=== PATIENT | female | born 1945 | race Caucasian/White ===

== ENCOUNTER 2016-10-28 07:19 | Day surgery (SDC) | payer MEDICARE, OTHER ==
[~2016-10-28 07:19] MED LIST: EPINEPHRINE INJ 1 MG/10 ML DISP.SYRIN ONE; FENTANYL CITRATE INJ/PF 100 MCG/2 ML AMPUL ONE; FLUMAZENIL INJ 0.5 MG/5 ML VIAL IV ONE; GLUCAGON,HUMAN RECOMB 1 MG INJ ONE; GLYCOPYRROLATE INJ 0.4 MG/2 ML VIAL ONE; NALOXONE HCL INJ/PF 0.4 MG/1 ML SDV ONE; ONDANSETRON HCL INJ/PF 4 MG/2 ML SDV ONE; PROMETHAZINE HCL INJ 25 MG/1 ML VIAL ONE
[2016-10-28] MEDS: MIDAZOLAM 2 MG/2 ML INJ ONE ×2 (07:43→07:58)
--- NOTE | 2016-10-28 08:44 | Operative Report ---
Operative Report DATE OF SURGERY: 10/28/16 PREOPERATIVE DIAGNOSIS: 1. History of colon polyps. 2. Status post sigmoid colectomy, colostomy and Stinson's pouch for perforated diverticular disease POSTOPERATIVE DIAGNOSIS: Same with. 1. Solitary polyp of the left colon. 2. Diversion proctitis. 3. Polypoid lesion of the rectum at 10 cm OPERATION: 1. Colonoscopy through colostomy to the cecum. 2. Left colon polypectomy. 3. Proctoscopy with debridement of retained stool. 4. Piecemeal polypectomy of polyp with lesion of the rectum at 10 cm from anal verge SURGEON: KISHORE VILLAGOMEZ ANESTHESIA: Moderate Sedation TISSUE REMOVED OR ALTERED: Polyps of left colon and rectum COMPLICATIONS: None ESTIMATED BLOOD LOSS: scant INTRAOPERATIVE FINDINGS: See below PROCEDURE: Obtaining informed consent the patient was taken from the preoperative holding area to the main endoscopy suite where monitoring devices were attached to the patient. Plan and surgical timeout were conducted The patient was placed in the lithotomy position with the appliance back from colostomy, left-sided, was removed. The ostomy was pink. It was digitalized to admit a pinky finger and and then an index finger. There was no evidence of stenosis. The flexible adult colonoscope was advanced all the way to the cecum. The this was an excellent study on a well-prepped bowel. Transillumination of the anterior abdominal wall and cecal anatomy confirm cecal visualization. The scope was withdrawn on the way out and a small polyp was seen in the left colon which was removed using the cold forceps device. It was labeled left colon polyp. Bleeding was negligible. The scope was withdrawn through the rest of the colon out the ostomy and no other pathology seen. There were no retained diverticuli. Now the patient was then placed in the left lateral decubitus position. Perianal exam revealed a retired anterior thrombosed hemorrhoid. Rectal exam revealed good sphincter tone. The flexible adult colonoscope was advanced through the an0- rectal canal; there was evidence of diversion colitis, mild. The scope was advanced to the termination point of the Stinson's pouch which was approximately 20 cm from the anal verge. There was a moderate amount of stool which required mechanical and water Irrigation debridement. Cystoscopy was clear we able to identify a polyp at approximately 10 cm from anal verge which was approximately 8-9 mm in diameter somewhat frond-like. It was photographed then debrided with the mechanical cold forceps device. The vessel was sent as rectal polyp. No other significant rectal pathology was seen. There were 2 diverticuli identified. The scope was withdrawn to the patient's anus. She tolerated the procedure well. The patient will be set up for colostomy takedown in the future pending the results of the rectal polypectomy catheter report. Surveillance colonoscopy will be indicated, other things being equal, in 3 years.
--- NOTE | 2016-10-28 08:46 | PDOC DISCHARGE SUMMARY ---
Discharge Summary (SDC) - Discharge Final Diagnosis: 1. Colon and rectal polyps. 2. Status post colostomy, colectomy and Stinson's pouch for perforated sigmoid diverticular disease Date of Surgery: 10/28/16 Discharge Date: 10/28/16 Condition: Good Treatment or Instructions: [facility] [address] [address] POST ENDOSCOPY DISCHARGE INSTRUCTIONS 1. Diet: Start clear liquids that a regular diet as tolerated. 2. Resume all preoperative medications. All oral anticoagulants and aspirins can be resumed 24 hours after procedure. 3. If a polypectomy was performed some bleeding per rectum may occur. This should stop within 3 days. If not, please contact the office. 4. If you had a colonoscopy you may experience some bloating and delayed return of normal bowel function for several days, your regular bowel movement pattern should resume within a week. 5. Please contact [facility] at to make an appointment with Dr. Lucero for 1 to 3 weeks following procedure. 6. If you have any questions or concerns regarding your care,treatment plan or follow up, please contact our office. 7. Per clinical guidelines we recommend you undergo a repeat colonoscopy in 3 years. Discharge Diet: As Tolerated Discharge Activity: Activity As Tolerated Home Care Assistance: None Needed Report the Following to Your Physician Immediately: Shortness of Breath, Increase in Pain, Fever over 101 Degrees
[2016-10-28 09:33] VITALS: BP 100/55
== END 2016-10-28 09:35 | disposition home or self-care (01) ==
LOC: END 07:19
PROVIDERS: ATTEND Surgery
PROC: 0DBG8ZX Excision of Left Large Intestine, Via Natural or Artificial Opening Endoscopic, Diagnostic (ICD-10-PCS; principal; 2016-10-28 07:30)
PROC: 0DBP8ZX Excision of Rectum, Via Natural or Artificial Opening Endoscopic, Diagnostic (ICD-10-PCS; 2016-10-28 07:30)
DX: D12.4 Benign neoplasm of descending colon (principal); K62.1 Rectal polyp; K62.89 Other specified diseases of anus and rectum; Z87.19 Personal history of other diseases of the digestive system; Z93.3 Colostomy status; I10 Essential (primary) hypertension; I25.2 Old myocardial infarction; Z95.5 Presence of coronary angioplasty implant and graft; Z70.2 Counseling related to sexual behavior and orientation of third party; Z79.82 Long term (current) use of aspirin; Z79.51 Long term (current) use of inhaled steroids; Z88.6 Allergy status to analgesic agent
CPT/HCPCS: 46606; 44389; 88305 ×2; J2250; J3010; J0171; J1610; J2310; J2405; J2550; J3490

== ENCOUNTER 2016-12-22 05:20 | Inpatient (IN) | payer MEDICARE, OTHER ==
--- NOTE | 2016-12-15 17:18 | EKG REPORT ---
SEVERITY:- BORDERLINE ECG - SINUS RHYTHM CONSIDER RVH OR POSTERIOR INFARCT BORDERLINE T ABNORMALITIES, INFERIOR LEADS NS T CHANGES IN LEADS 3 ANDD aVF : Confirmed by: Kaley Ramos MD 15-Dec-2016 09:10:56
[2016-12-16 08:01] LABS: HEMATOCRIT 44.6 % (36.0-47.0); HEMOGLOBIN 14.6 g/dL (12.0-15.5); HGB HCT DIFFERENCE -0.8; MEAN CORPUSCULAR HEMOGLOBIN 32.2 pg (27.0-33.4); MEAN CORPUSCULAR HGB CONC 32.8 g/dL (32.0-36.0); MEAN CORPUSCULAR VOLUME 98 fl (80-97); RED BLOOD COUNT 4.54 10^6/uL (3.72-5.28); RED CELL DISTRIBUTION WIDTH 13.2 % (11.5-14.0); WHITE BLOOD COUNT 6.3 10^3/uL (4.0-10.5)
[2016-12-17 16:31] LABS: ANION GAP 11 (5-19); BLOOD UREA NITROGEN 16 mg/dL (7-20); CARBON DIOXIDE 32 mmol/L (22-30); CHLORIDE 101 mmol/L (98-107); CREATININE RESULT 0.78 mg/dL (0.52-1.25); GLUCOSE 116 mg/dL (75-110); SODIUM 143.8 mmol/L (137-145)
[~2016-12-22 05:20] MED LIST changes: +AMPICILLIN SODIUM/SULBACTAM NA 3 GM in NORMAL SALINE 100 ML IV PRN; -EPINEPHRINE INJ 1 MG/10 ML DISP.SYRIN ONE; -FENTANYL CITRATE INJ/PF 100 MCG/2 ML AMPUL ONE; -FLUMAZENIL INJ 0.5 MG/5 ML VIAL IV ONE; -GLUCAGON,HUMAN RECOMB 1 MG INJ ONE; -GLYCOPYRROLATE INJ 0.4 MG/2 ML VIAL ONE; -NALOXONE HCL INJ/PF 0.4 MG/1 ML SDV ONE; -ONDANSETRON HCL INJ/PF 4 MG/2 ML SDV ONE; -PROMETHAZINE HCL INJ 25 MG/1 ML VIAL ONE; +RINGERS SOLUTION,LACTATED 1,000 ML IV PRN
[2016-12-22 06:57] LABS: PROTHROMBIN TIME 13.9 SEC (11.4-15.4)
[2016-12-22 06:58] LABS: PARTIAL THROMBOPLASTIN TIME 40.1 SEC (23.5-35.8)
[2016-12-22] MEDS ORDERED: FENTANYL CITRATE INJ/PF 250 MCG/5 ML AMPULE ONE (07:04)
[2016-12-22] MEDS ORDERED: MIDAZOLAM 2 MG/2 ML INJ ONE (07:05)
[2016-12-22] MEDS ORDERED: HYDROMORPHONE HCL INJ/PF 2 MG/ML AMPULE ONE (07:05)
[2016-12-22] MEDS ORDERED: EPHEDRINE SULFATE INJ 50 MG/1 ML AMPULE ONE (07:05)
[2016-12-22] MEDS ORDERED: ACETAMINOPHEN 100 ML IV ONE (07:06)
[2016-12-22] MEDS ORDERED: PROPOFOL INJ 200 MG/20 ML VIAL IV ONE (07:06)
[2016-12-22] MEDS ORDERED: BUPIVACAINE INJ/PF LIPOSOME/PF 266 MG/20 ML SDV ONE (08:07)
[2016-12-22] MEDS ORDERED: MEPERIDINE HCL/PF INJ 25 MG/1 ML DISP.SYRIN IV PRN ×2 (08:25→13:17)
[2016-12-22] MEDS ORDERED: PROMETHAZINE HCL INJ 25 MG/1 ML VIAL IV PRN ×4 (08:25→13:17)
[2016-12-22] MEDS ORDERED: FENTANYL CITRATE INJ/PF 100 MCG/2 ML AMPUL IV PRN ×6 (08:25→13:17)
[2016-12-22] MEDS ORDERED: DIPHENHYDRAMINE HCL 50 MG/ML VIAL IV PRN ×2 (08:25→13:17)
[2016-12-22] MEDS ORDERED: ALBUTEROL SULFATE 0.083% NEB 2.5 MG/3 ML AMPUL NEB ONE (09:44)
[2016-12-22] MEDS ORDERED: GLUCAGON,HUMAN RECOMB 1 MG INJ ONE (09:56)
[2016-12-22] MEDS ORDERED: FENTANYL CITRATE INJ/PF 100 MCG/2 ML AMPUL ONE ×2 (11:13→12:56)
[2016-12-22] MEDS ORDERED: RINGERS SOLUTION,LACTATED 1,000 ML IV PRN ×2 (12:02→12:29)
[2016-12-22] MEDS ORDERED: ONDANSETRON HCL INJ/PF 4 MG/2 ML SDV IV PRN (12:02)
[2016-12-22] MEDS ORDERED: MORPHINE SULFATE 10 MG/ML INJ IV PRN (12:02)
[2016-12-22] MEDS ORDERED: GLUCAGON,HUMAN RECOMB 1 MG INJ SUBCUT PRN (12:07)
[2016-12-22] MEDS ORDERED: DEXTROSE 50%-WATER 25 GM/50 ML DISP.SYRIN IV PRN ×2 (12:07)
[2016-12-22] MEDS ORDERED: DEXTROSE 40% GEL 15 GM TUBE PO PRN ×2 (12:07)
[2016-12-22] MEDS ORDERED: NALOXONE HCL INJ/PF 0.4 MG/1 ML SDV ONE (12:11)
--- NOTE | 2016-12-22 13:23 | OPERATIVE REPORT E ---
Operative Report NAME: BITA THOMPSON : 1945 AGE: 71Y DATE OF SURGERY: 12/22/2016 ROOM: OR PREOPERATIVE DIAGNOSIS: STATUS POST SIGMOID COLECTOMY WITH DESCENDING COLOSTOMY AND PAM PROCEDURE FOR COMPLICATED DIVERTICULITIS, HINCHEY CLASSIFICATION 4. POSTOPERATIVE DIAGNOSIS: STATUS POST SIGMOID COLECTOMY WITH DESCENDING COLOSTOMY AND PAM PROCEDURE FOR COMPLICATED DIVERTICULITIS, HINCHEY CLASSIFICATION 4, WITH INTRAABDOMINAL ADHESIONS, AND MID-RECTAL STRICTURE. PROCEDURES: 1. Exploratory laparotomy. 2. Open lysis of adhesions. 3. Descending colostomy takedown. 4. Serosal repair of partial thickness rents in small bowel. 5. Colorectostomy with 25 mm EEA stapler. SURGEON: KISHORE LUCERO M.D. HONING MACHINE OPERATOR: OLGA REDMOND PA-C ANESTHESIA: General. ESTIMATED BLOOD LOSS: 250 mL. CRYSTALLOID INFUSED: Approximately 3 L. BLOOD TRANSFUSED: None. DRAINS: One large Justin, right pelvis. SUMMARY OF PROCEDURE: The patient was seen in the preop holding area, then taken to the main operating room where general anesthesia was induced. The patient was placed in the stirrup position, abdomen exposed, Kohli catheter inserted. We removed he ostomy appliance and closed the mucosae with a running 2-[address] Lucero performed rectal examination. We removed several desiccated fecal balls. The anorectal canal easily admitted 2 adult fingers. The abdomen and perineal areas were prepped and draped in a sterile fashion. Surgical plan and surgical timeout were conducted. We started the operation by taking down the colostomy. The ostomy was excised at the skin level with a #10 blade. The level of dissection was taken down close to the bowel surface all the way down to the fascia using electrocautery and blunt dissection. Once this was achieved, we then opened up the midline incision through the previous scar. We got into the peritoneal cavity sharply, then began taking down extensive adhesions between the anterior abdominal wall and several loops of small bowel. Some of these adhesions were very tenacious and there were 2 to 3 small serosal rents made in the bowel wall. These were not full thickness rents. Once all of the adhesiolysis was accomplished, Bookwalter retractor was established. We then took down the rest of the descending colon from the left abdominal wall using a combination of sharp and electrocautery dissection. Of note, the gastrocolic omentum was adhesed to the anterior abdominal wall on the patient's left side. Initially, we started taking down part of the peritoneal layer, but this was then recognized and from the dense adhesions in the left upper quadrant. Of note, the patient had previously undergone splenic flexure takedown. We now completed our lysis of adhesions which took another 30 minutes. This was primarily to mobilize the small bowel out of the left pericolic gutter, and the descending colon from the transverse colon. Use of open LigaSure device facilitated the dissection. The gastrocolic omentum was also divided so that the transverse colon and descending colon were now free and floppy. All adhesions were taken down all the way to the Ligament of Treitz. We now turned our attention to the pelvis. Patient had previous oophorectomy by clinical exam. There were dense adhesions between the uterus and the pelvis, and these adhesions were then taken down sharply. We stayed in midline and eventually got down to the rectal stump which was identified using two 2-0 Prolene sutures. Dissection was rather tedious here, again because of an exorbitant amount of adhesions. Once we were able to get the rectal stump up into the field of view, I felt that we could bring the proximal descending colon down without tension and perform the anastomosis. We turned our attention now to the descending colon. Of note, prior to bringing the colonostomy through the anterior abdominal wall in a retrograde fashion, I stapled off the hand-sewn ostomy opening with a single firing of the DEEPIKA-55 stapler. We now examined the distal end of the descending colon. We proceeded to perform the stapled suture application and so this was brought onto the field. The DEEPIKA-55 staple line was affixed with Allis clamps and we fired the purse-string stapler into position. Excess colon was excised with Perrin scissors and we inspected the lumen of the descending colon. Of note, this was a small caliber colon throughout the length of the transverse and descending colon. We gave the patient 1 mg of Glucagon; there was no soilage here and we were only able to dilate up with great resistance of the colon to accept a 25-mm obturator. Since we had significant length, we felt we could take a small section of the descending colon, and revise the pursestring suture, and so this was affected by simply moving more proximally on the descending colon, and performing a second firing of the purse-string stapler. Once we opened up the colon, we were able to insert a 25-mm obturator with slightly less resistance. Unfortunately, I did not feel we would be able to dilate this colon up any further. Dr. Lucero now broke scrub and came down from below for positioning of the EEA stapler. I first performed rigid sigmoidoscopy. Several desiccated small stool balls were removed. I advanced the rigid sigmoidoscope up to approximately 15 cm from the anal verge and there was a very narrow concentric ring-like narrowing of to the lumen. I broke out of the perineal position, and scrubbed back into the operative field and tried to lyse some additional adhesions, mobilizing the rectal stump a few more centimeters in an attempt to free this area extra-luminally. I went back down below and again tried to reinsert the rigid sigmoidoscope past this narrowed area. I also used the 25-mm obturator. Unfortunately, I was not able to get past this area, and I believed that this would cause the patient problems in the future. Therefore, I scrubbed back into the operative field and proceeded to mobilize approximately 8 cm of the upper rectum so that we could get down below the stenotic ring-like area of the rectum at 15 cm from the anal verge. I used a combination of electrocautery, blunt dissection, and LigaSure device, working in a circumferential fashion staying close to the upper rectum. Of note the peritoneal reflection had been taken down earlier. There were dense adhesions between the peritoneal lining and the anterior surface of the rectum. Of note, we did take the adhesionws down sharply between the pelvic reflection and the anterior rectal wall. Of note, prior to this entire dissection, when we first identified the rectal stump, we did encounter dense adhesions between the posterior surface of the uterus which in fact had 2 or 3 small fibroids in the anterior upper rectum. I was now able to elevate the more proximal rectal stump with Allis clamps and we were now able to bring onto the field a curvilinear contour Ethicon stapler. This was fit into position. We checked that we were about to staple across the proximal rectal stump only. The stapler was fired and released. This thereby allowed us to excise the stenotic area at 15 cm. We now had the proximal descending colon secured with the anvil anteposition. We cleaned some of the redundant fatty tissue around the post of the anvil. The descending colon came down nicely without tension into the true pelvis. I came down below again with a rigid sigmoidoscope and inspected the Pam pouch (that is the now revised rectum which had been transected with a contour stapler). It was approximately 13 cm in length. I now brought the sigmoidoscope of the anorectal canal and inserted the stapler component of the EEA device. This was advanced without difficulty right up to the staple line. I then brought the pin out just anterior to the contour staple line. We locked the proximal colon (that is with the Anvil anteposition) and torqued the tension down to the appropriate specifications. We waited approximately 30 seconds, then deployed the stapler. The stapler and anvil were removed intact. I inspected for intact donuts. The distal donut was clearly intact and the proximal donut ripped in one area during its extirpation from the stapler; so, whether it was originally intact or not is debatable. We instilled a liter or saline into the pelvis, and clamped the descending colon proximal to the anastomosis. I performed rigid sigmoidoscopy. The anastomosis was wide open, healthy without tension, and insufflation resulted in distention of the proximal descending colon without any leakage of bubbles. The anorectal canal was evacuated of air, sigmoidoscope removed, and pelvis evacuated of fluid. We closed now the small serosal rents in the small bowel as previously described with an interrupted 3-0 Vicryl suture. A large Justin drain was placed into the true pelvis, trimmed appropriately, and secured to the skin with 2-0 Prolene suture. We checked for position of the nasogastric tube, replaced by the roofer helper vinyl coating, and was felt to be in good position. Sponge and needle counts are correct. We now closed the original ostomy with multiple [id number] 0-PDS sutures. The midline abdominal wall was closed with two double-stranded #1 PDS sutures and skin approximated under both incisions with livan. Skin was anesthetized with EXPAREL dilute. Patient tolerated procedure well, extubated, and taken to recovery in stable condition. DICTATING PHYSICIAN: KISHORE LUCERO M.D. [id number] PHY#: [id number] ID: [id number] JOB#: [id number] ACCT: [id number] cc:KISHORE LUCERO M.D. > [facility]
[2016-12-22] MEDS ORDERED: NEOSTIGMINE METHYLSULFATE 10 MG/10 ML VIAL ONE (13:25)
[2016-12-22] MEDS ORDERED: LIDOCAINE 2% INJ-PF (20 MG/ML) 10 ML AMPUL ONE (13:25)
[2016-12-22] MEDS ORDERED: SUCCINYLCHOLINE CHLORIDE INJ 200 MG/10 ML VIAL ONE (13:25)
[2016-12-22] MEDS ORDERED: ROCURONIUM BROMIDE INJ 50 MG/5 ML VIAL IV ONE (13:25)
[2016-12-22] MEDS ORDERED: DEXAMETHASONE SOD PHOSPHATE INJ 4 MG/1 ML VIAL ONE (13:25)
[2016-12-22] MEDS ORDERED: GLYCOPYRROLATE INJ 0.4 MG/2 ML VIAL ONE (13:25)
[2016-12-22] MEDS ORDERED: ONDANSETRON HCL INJ/PF 4 MG/2 ML SDV ONE (13:25)
[2016-12-22 14:10] LABS: POTASSIUM 4.1 mmol/L (3.6-5.0); SODIUM 138.4 mmol/L (137-145)
--- NOTE | 2016-12-22 14:15 | PDOC CONSULTATION ---
Consultation Consult Date: 12/22/16 Attending physician:: KISHORE VILLAGOMEZ Consult reason:: PVCs intraoperatively History of Present Illness Admission Date/PCP: 12/22/16 05:20 TRENA SCOTT NP Patient complains of: Post operative abdominal pain History of Present Illness: BITA THOMPSON is a 71 year old female has a history of perforated diverticulitis in May 2016 who underwent repair and a colostomy takedown. The patient intraoperatively was noted to have frequent PVCs and hospitalist service was asked to evaluate. Patient was seen in the PACU and she denied any shortness of breath or chest pain. She has had several PVCs however they were asymptomatic. The patient has a history of coronary artery disease but denies any cardiac arrhythmias. The patient preoperatively denied having any complaints of shortness of breath or dyspnea on exertion. She is a former smoker but has not smoked for over 2 years now by her report. Past Medical History Cardiac Medical History: Reports: Coronary Artery Disease, Myocardial Infarction - x1; had 3 stents placed, Hyperlipidema, Hypertension Denies: Atrial Fibrillation, Congestive Heart Failure, Peripheral Vascular Disease, Pulmonary Embolism, Heart Murmur Pulmonary Medical History: Reports: Chronic Obstructive Pulmonary Disease (COPD) Denies: Asthma, Bronchitis, Pneumonia, Respiratory Failure, Sleep Apnea, Tuberculosis Neurological Medical History: Reports: None Endocrine Medical History: Reports: None Renal/ Medical History: Reports: None Malignancy Medical History: Reports: None GI Medical History: Reports: Diverticulitis Psychiatric Medical History: Reports: None Traumatic Medical History: Reports: None Hematology: Reports: None Infectious Medical History: Denies: HIV Past Surgical History Past Surgical History: Reports: Cardiac Catheterization, Colostomy, Coronary Artery Bypass Graft, Coronary Stent - X3, Orthopedic Surgery - left ankle, Tonsillectomy, Tubal Ligation Denies: Amputation, Appendectomy, Section, Cholecystectomy, Gastric Bypass Surgery, Herniorrhaphy, Hysterectomy, Mastectomy, Pacemaker Social History Information Source: Patient Smoking Status: Former Smoker Frequency of Alcohol Use: None Hx Recreational Drug Use: No Drugs: None Hx Prescription Drug Abuse: No - Advance Directive Resuscitation Status: Full Code Family History Family History: CAD - Fathered from a massive [place] at age 59, a paternal uncle of an IL at age 59, mother at age 57 of cancer and emphysema., Hypertension, Malignancy Family History: Father at age 59 from coronary artery disease. Mother at age 57 from breast and lung cancer. She also had COPD Parental Family History Reviewed: Yes Children Family History Reviewed: No Sibling(s) Family History Reviewed.: No Medication/Allergy Home Medications: Ascorbic Acid [Vitamin C 500 mg Tablet] 500 mg PO DAILY 05/29/16 Aspirin [Ecotrin] 81 mg PO DAILY 05/29/16 Atorvastatin Calcium [Lipitor 40 mg Tablet] 40 mg PO QHS 05/29/16 Calcium Carbonate [Calcium] 1,200 mg PO BID 05/29/16 Clopidogrel Bisulfate [Plavix 75 mg Tablet] 75 mg PO DAILY 05/29/16 Metoprolol Succinate [Toprol Xl 50 mg Tab.sr] 50 mg PO DAILY 10/25/16 Allergies/Adverse Reactions: ibuprofen Allergy (Verified 10/28/16 07:22) hands itch morphine Adverse Reaction (Verified 11/26/16 11:21) VOMITING Review of Systems Constitutional: ABSENT: chills, fever(s), headache(s), weight gain, weight loss Eyes: ABSENT: visual disturbances Ears: ABSENT: hearing changes Cardiovascular: ABSENT: chest pain, dyspnea on exertion, edema, orthropnea, palpitations Respiratory: ABSENT: cough, hemoptysis Gastrointestinal: PRESENT: abdominal pain - Postoperative pain. Genitourinary: PRESENT: other - Currently has a Kohli catheter in place. ABSENT : dysuria, hematuria Musculoskeletal: ABSENT: joint swelling Integumentary: ABSENT: rash, wounds Neurological: ABSENT: abnormal gait, abnormal speech, confusion, dizziness, focal weakness, syncope Psychiatric: ABSENT: anxiety, depression Endocrine: ABSENT: cold intolerance, heat intolerance, polydipsia, polyuria Hematologic/Lymphatic: ABSENT: easy bleeding, easy bruising Physical Exam Vital Signs: Temp Pulse Resp BP Pulse Ox 98.3 F 77 16 124/78 99 12/22/16 06:07 12/22/16 06:07 12/22/16 06:07 12/22/16 06:07 12/22/16 06:07 Intake & Output 12/21/16 12/22/16 12/23/16 06:59 06:59 06:59 Intake Total 3200 Output Total 3000 Balance 200 General appearance: PRESENT: no acute distress Head exam: PRESENT: atraumatic, normocephalic Eye exam: PRESENT: conjunctiva pink. ABSENT: scleral icterus Ear exam: PRESENT: normal external ear exam Mouth exam: PRESENT: moist, tongue midline Neck exam: ABSENT: carotid bruit, JVD, lymphadenopathy, thyromegaly Respiratory exam: PRESENT: clear to auscultation wero. ABSENT: rales, rhonchi, wheezes Cardiovascular exam: PRESENT: RRR. ABSENT: diastolic murmur, rubs, systolic murmur Vascular exam: PRESENT: normal capillary refill GI/Abdominal exam: PRESENT: other - Abdominal binder with a drain in place Rectal exam: PRESENT: deferred Extremities exam: ABSENT: calf tenderness, clubbing, pedal edema Neurological exam: PRESENT: alert, awake, oriented to person, oriented to place , oriented to time, oriented to situation, CN II-XII grossly intact. ABSENT: motor sensory deficit Skin exam: PRESENT: dry, intact, warm, other - Abdominal binder in place over the abdomen which was not examined. ABSENT: cyanosis, rash Results Laboratory Results: 12/15/16 08:50 12/22/16 06:30 Potassium 4.8 Assessment & Plan - Diagnosis (1) Coronary artery disease Qualifiers: Coronary Disease-Associated Artery/Lesion type: [place] artery [place] vs. transplanted heart: [place] heart Associated angina: without angina Qualified Code(s): I25.10 - Atherosclerotic heart disease of [place] coronary artery without angina pectoris Is this a current diagnosis for this admission?: YesPlan: Patient was noted to have intraoperative PVCs. The patient however has had no chest pain or shortness of breath. She does have a history of coronary artery disease. We will monitor on telemetry. Patient already has had electrolytes drawn. She normally takes a beta-fred Toprol as an outpatient. If she has frequent PVCs we could give IV Lopressor. (2) COPD (chronic obstructive pulmonary disease) Qualifiers: COPD type: unspecified COPD Qualified Code(s): J44.9 - Chronic obstructive pulmonary disease, unspecified Is this a current diagnosis for this admission?: YesPlan: Patient has no wheezing on exam. (3) Depression Is this a current diagnosis for this admission?: Yes (4) Diverticulosis Qualifiers: Diverticulosis site: unspecified location Diverticulosis bleeding: diverticulosis without bleeding Qualified Code(s): K57.90 - Diverticulosis of intestine, part unspecified, without perforation or abscess without bleeding Is this a current diagnosis for this admission?: YesPlan: Patient is status post colostomy takedown from a perforated diverticulitis in May 2016 (5) Hyperlipidemia Qualifiers: Hyperlipidemia type: unspecified Qualified Code(s): E78.5 - Hyperlipidemia, unspecified Is this a current diagnosis for this admission?: Yes - Time Time Spent: 50 to 70 Minutes - Inpatient Certification Medical Necessity: Need Close Monitoring Due to Risk of Patient Decompensation
[2016-12-22] MEDS: ACETAMINOPHEN 100 ML IV SCH ×2 (14:56→20:05)
[2016-12-22] MEDS: KETOROLAC TROMETHAMINE INJ/PF 30 MG/1 ML SDV IV PRN (20:06)
--- NOTE | 2016-12-22 20:06 | EKG REPORT ---
SEVERITY:- ABNORMAL ECG - SINUS RHYTHM NONSPECIFIC INTRAVENTRICULAR CONDUCTION DELAY NONSPECIFIC ST-T CHANGES- INFERIOR LEADS : Confirmed by: Juan C Glover MD 22-Dec-2016 20:05:21
[2016-12-22] MEDS: FAMOTIDINE INJ/PF 20 MG/2 ML SDV IV SCH (21:58)
[2016-12-23] MEDS: ACETAMINOPHEN 100 ML IV SCH ×4 (02:31→21:44)
[2016-12-23] MEDS: KETOROLAC TROMETHAMINE INJ/PF 30 MG/1 ML SDV IV PRN ×4 (03:07→22:29)
--- NOTE | 2016-12-23 07:38 | PDOC PROGRESS REPORT ---
Subjective Progress Note for:: 12/23/16 Subjective:: Patient has no complaints for some abdominal soreness. She did not get up last night. She had transient episodes of tachycardia which resolved. Physical Exam Vital Signs: Temp Pulse Resp BP Pulse Ox 98.1 F 88 20 93/42 L 97 12/23/16 04:00 12/23/16 07:00 12/23/16 04:00 12/23/16 04:00 12/23/16 04:00 Intake & Output 12/22/16 12/23/16 12/24/16 06:59 06:59 06:59 Intake Total 8502 Output Total 3940 Balance 4562 General appearance: PRESENT: no acute distress Eye exam: PRESENT: EOMI Respiratory exam: PRESENT: clear to auscultation wero GI/Abdominal exam: PRESENT: other - Binder on abdomen talked snugly. No overt tenderness. And with serosanguineous output. Results Laboratory Results: 12/15/16 08:50 12/22/16 13:39 12/22/16 13:39 Sodium 138.4 Potassium 4.1 Chloride 104 Carbon Dioxide 23 Anion Gap 11 Assessment & Plan - Diagnosis (1) S/P colostomy takedown Is this a current diagnosis for this admission?: YesPlan: 1. Postoperative day 1, doing well, no complications thus far. Transient tachycardia likely related to pain 2. Today will be to discontinue Kohli catheter, discontinue nasogastric tube, get patient out of bed and walking. 3. May have a ileus due to moderate extensive lysis of adhesions.
[2016-12-23] MEDS: FAMOTIDINE INJ/PF 20 MG/2 ML SDV IV SCH ×2 (09:20→21:43)
[2016-12-23] MEDS: CLOPIDOGREL BISULFATE 75 MG TABLET PO SCH (09:21)
[2016-12-23] MEDS: ASPIRIN 81 MG TABLET, ENT COATED PO SCH (09:21)
[2016-12-23] MEDS: ASCORBIC ACID 500 MG TABLET PO SCH (09:21)
[2016-12-23] MEDS: METOPROLOL SUCCINATE 50 MG TAB.SR.24H PO SCH (09:22)
[2016-12-23] MEDS ORDERED: (PENDING PHARMACY ID) (Calcium Carbonate [Calcium] 1,200 MG) PO SCH (10:00)
[2016-12-23] MEDS ORDERED: BUTALB/ACETAMINOPHEN/CAFFEINE 1 TAB EACH PO PRN (12:00)
--- NOTE | 2016-12-23 12:04 | PDOC PROGRESS REPORT ---
Subjective Progress Note for:: 12/23/16 Subjective:: Patient states she wants her NG tube out. Physical Exam Vital Signs: Temp Pulse Resp BP Pulse Ox 97.7 F 85 18 88/38 L 94 12/23/16 11:14 12/23/16 11:14 12/23/16 11:14 12/23/16 11:14 12/23/16 11:14 Intake & Output 12/22/16 12/23/16 12/24/16 06:59 06:59 06:59 Intake Total 8502 Output Total 3940 Balance 4562 General appearance: PRESENT: no acute distress Eye exam: PRESENT: conjunctiva pink. ABSENT: scleral icterus Mouth exam: PRESENT: moist, tongue midline Neck exam: ABSENT: JVD Respiratory exam: PRESENT: clear to auscultation wero. ABSENT: rales, rhonchi, wheezes Cardiovascular exam: PRESENT: RRR. ABSENT: diastolic murmur, rubs, systolic murmur GI/Abdominal exam: PRESENT: other - Binder is in place Extremities exam: ABSENT: calf tenderness, clubbing, pedal edema Neurological exam: PRESENT: alert, awake, oriented to person, oriented to place , oriented to time, oriented to situation, CN II-XII grossly intact. ABSENT: motor sensory deficit Psychiatric exam: PRESENT: appropriate affect Skin exam: PRESENT: dry, intact, warm. ABSENT: cyanosis, rash Results Laboratory Results: 12/15/16 08:50 12/22/16 13:39 12/22/16 13:39 Sodium 138.4 Potassium 4.1 Chloride 104 Carbon Dioxide 23 Anion Gap 11 Assessment & Plan - Diagnosis (1) Coronary artery disease Qualifiers: Coronary Disease-Associated Artery/Lesion type: [place] artery [place] vs. transplanted heart: [place] heart Associated angina: without angina Qualified Code(s): I25.10 - Atherosclerotic heart disease of [place] coronary artery without angina pectoris Is this a current diagnosis for this admission?: YesPlan: Patient was noted to have intraoperative PVCs. SHe has had no significant cardiac arrhythmias since being admitted. Will restart her beta-blockers as her blood pressure allows (2) COPD (chronic obstructive pulmonary disease) Qualifiers: COPD type: unspecified COPD Qualified Code(s): J44.9 - Chronic obstructive pulmonary disease, unspecified Is this a current diagnosis for this admission?: YesPlan: Patient has no wheezing on exam. (3) Depression Is this a current diagnosis for this admission?: Yes (4) Diverticulosis Qualifiers: Diverticulosis site: unspecified location Diverticulosis bleeding: diverticulosis without bleeding Qualified Code(s): K57.90 - Diverticulosis of intestine, part unspecified, without perforation or abscess without bleeding Is this a current diagnosis for this admission?: YesPlan: Patient is status post colostomy takedown from a perforated diverticulitis in May 2016 (5) Hyperlipidemia Qualifiers: Hyperlipidemia type: unspecified Qualified Code(s): E78.5 - Hyperlipidemia, unspecified Is this a current diagnosis for this admission?: Yes - Time Time Spent with patient: 25-34 minutes - Inpatient Certification Medical Necessity: Need Close Monitoring Due to Risk of Patient Decompensation
[2016-12-23] MEDS ORDERED: ONDANSETRON HCL INJ/PF 4 MG/2 ML SDV IV PRN (12:12)
[2016-12-23] MEDS: CALCIUM CARBONATE 500 MG TABLET PO SCH (16:27)
[2016-12-23] MEDS: ATORVASTATIN CALCIUM 40 MG TABLET PO SCH (21:44)
[2016-12-24] MEDS: ACETAMINOPHEN 100 ML IV SCH ×2 (02:34→13:30)
[2016-12-24 03:47] LABS: ABSOLUTE EOSINOPHILS # (AUTO) 0.1 10^3/uL (0.0-0.6); ABSOLUTE LYMPHOCYTES (AUTO) 1.2 10^3/uL (0.5-4.7); ABSOLUTE MONOCYTES (AUTO) 0.6 10^3/uL (0.1-1.4); ABSOLUTE NEUT (AUTO) 6.1 10^3/uL (1.7-8.2); BASOPHILS % (AUTO) 0.2 % (0-2); EOSINOPHILS % (AUTO) 0.8 % (0-6); HEMATOCRIT 29.2 % (36.0-47.0); HGB HCT DIFFERENCE 0.8; LYMPHOCYTES % (AUTO) 15.5 % (13-45); MEAN CORPUSCULAR HEMOGLOBIN 32.8 pg (27.0-33.4); MEAN CORPUSCULAR HGB CONC 34.3 g/dL (32.0-36.0); MEAN CORPUSCULAR VOLUME 96 fl (80-97); MONOCYTES % (AUTO) 7.4 % (3-13); RED BLOOD COUNT 3.05 10^6/uL (3.72-5.28); SEGMENTED NEUTROPHILS % (AUTO) 76.1 % (42-78)
[2016-12-24 04:02] LABS: ANION GAP 5 (5-19); BLOOD UREA NITROGEN 21 mg/dL (7-20); CALCIUM 8.5 mg/dL (8.4-10.2); CARBON DIOXIDE 28 mmol/L (22-30); CHLORIDE 105 mmol/L (98-107); CREATININE RESULT 0.84 mg/dL (0.52-1.25); GLUCOSE 80 mg/dL (75-110); MAGNESIUM 1.7 mg/dL (1.6-2.3); PHOSPHORUS 2.7 mg/dL (2.5-4.5); POTASSIUM 4.4 mmol/L (3.6-5.0); SODIUM 138.2 mmol/L (137-145)
[2016-12-24] MEDS ORDERED: POTASSIUM PHOS,M-BASIC-D-BASIC 15 MMOL in NORMAL SALINE 250 ML IV ONE (05:30)
[2016-12-24] MEDS: CLOPIDOGREL BISULFATE 75 MG TABLET PO SCH (09:32)
[2016-12-24] MEDS: CALCIUM CARBONATE 500 MG TABLET PO SCH ×2 (09:32→18:52)
[2016-12-24] MEDS: METOPROLOL SUCCINATE 50 MG TAB.SR.24H PO SCH (09:32)
[2016-12-24] MEDS: FAMOTIDINE INJ/PF 20 MG/2 ML SDV IV SCH ×2 (09:33→21:04)
[2016-12-24] MEDS: ASCORBIC ACID 500 MG TABLET PO SCH (09:33)
[2016-12-24] MEDS: ASPIRIN 81 MG TABLET, ENT COATED PO SCH (09:33)
--- NOTE | 2016-12-24 10:49 | PDOC PROGRESS REPORT ---
Subjective Progress Note for:: 12/24/16 Subjective:: Patient is anxious to go home and eat. She denies having any flatus however Physical Exam Vital Signs: Temp Pulse Resp BP Pulse Ox 98.1 F 72 20 102/67 93 12/24/16 07:43 12/24/16 07:43 12/24/16 07:43 12/24/16 07:43 12/24/16 07:43 Intake & Output 12/23/16 12/24/16 12/25/16 06:59 06:59 06:59 Intake Total 8502 2590 Output Total 3940 1675 Balance 4562 915 Weight 69.6 kg General appearance: PRESENT: no acute distress Eye exam: PRESENT: conjunctiva pink. ABSENT: scleral icterus Mouth exam: PRESENT: moist, tongue midline Neck exam: ABSENT: JVD Respiratory exam: PRESENT: clear to auscultation wero. ABSENT: rales, rhonchi, wheezes Cardiovascular exam: PRESENT: RRR. ABSENT: diastolic murmur, rubs, systolic murmur GI/Abdominal exam: PRESENT: other - Abdominal binder in place. Extremities exam: ABSENT: calf tenderness, clubbing, pedal edema Neurological exam: PRESENT: alert, awake, oriented to person, oriented to place , oriented to time, oriented to situation, CN II-XII grossly intact. ABSENT: motor sensory deficit Psychiatric exam: PRESENT: appropriate affect Skin exam: PRESENT: dry, intact, warm. ABSENT: cyanosis, rash Results Laboratory Results: 12/24/16 03:39 12/24/16 03:39 12/24/16 12/24/16 03:39 03:39 WBC 8.0 RBC 3.05 L Hgb 10.0 L Hct 29.2 L MCV 96 MCH 32.8 MCHC 34.3 RDW 13.0 Plt Count 137 L Seg Neutrophils % 76.1 Lymphocytes % 15.5 Monocytes % 7.4 Eosinophils % 0.8 Basophils % 0.2 Absolute Neutrophils 6.1 Absolute Lymphocytes 1.2 Absolute Monocytes 0.6 Absolute Eosinophils 0.1 Absolute Basophils 0.0 Sodium 138.2 Potassium 4.4 Chloride 105 Carbon Dioxide 28 Anion Gap 5 BUN 21 H Creatinine 0.84 Est GFR ( Amer) > 60 Est GFR (Non-Af Amer) > 60 Glucose 80 Calcium 8.5 Phosphorus 2.7 Magnesium 1.7 Assessment & Plan - Diagnosis (1) Coronary artery disease Qualifiers: Coronary Disease-Associated Artery/Lesion type: [place] artery [place] vs. transplanted heart: [place] heart Associated angina: without angina Qualified Code(s): I25.10 - Atherosclerotic heart disease of [place] coronary artery without angina pectoris Is this a current diagnosis for this admission?: YesPlan: Patient was noted to have intraoperative PVCs. SHe has had no significant cardiac arrhythmias since being admitted. Will restart her beta-blockers as her blood pressure allows. The patient did not get her beta-fred yesterday because of some relative hypotension. (2) COPD (chronic obstructive pulmonary disease) Qualifiers: COPD type: unspecified COPD Qualified Code(s): J44.9 - Chronic obstructive pulmonary disease, unspecified Is this a current diagnosis for this admission?: YesPlan: Patient has no wheezing on exam. (3) Depression Is this a current diagnosis for this admission?: Yes (4) Diverticulosis Qualifiers: Diverticulosis site: unspecified location Diverticulosis bleeding: diverticulosis without bleeding Qualified Code(s): K57.90 - Diverticulosis of intestine, part unspecified, without perforation or abscess without bleeding Is this a current diagnosis for this admission?: YesPlan: Patient is status post colostomy takedown from a perforated diverticulitis in May 2016 (5) Hyperlipidemia Qualifiers: Hyperlipidemia type: unspecified Qualified Code(s): E78.5 - Hyperlipidemia, unspecified Is this a current diagnosis for this admission?: Yes - Time Time Spent with patient: 25-34 minutes - Inpatient Certification Medical Necessity: Need Close Monitoring Due to Risk of Patient Decompensation
--- NOTE | 2016-12-24 14:42 | PDOC PROGRESS REPORT ---
Subjective Progress Note for:: 12/24/16 Subjective:: Patient is postoperative day 2 status post exploratory laparotomy, open takedown of colostomy and colorectal anastomosis. She is tolerating clear liquids, and had flatus. She is voiding without difficulty. Her p.o. preoperative medications have been resumed. Physical Exam Vital Signs: Temp Pulse Resp BP Pulse Ox 97.6 F 114 H 18 127/88 H 93 12/24/16 12:00 12/24/16 12:00 12/24/16 12:00 12/24/16 12:00 12/24/16 12:00 Intake & Output 12/23/16 12/24/16 12/25/16 06:59 06:59 06:59 Intake Total 8502 2590 Output Total 3940 1675 Balance 4562 915 Weight 69.6 kg General appearance: PRESENT: no acute distress GI/Abdominal exam: PRESENT: other - Soft, appropriately tender, not distended binder in position. Results Laboratory Results: 12/24/16 03:39 12/24/16 03:39 12/24/16 12/24/16 03:39 03:39 WBC 8.0 RBC 3.05 L Hgb 10.0 L Hct 29.2 L MCV 96 MCH 32.8 MCHC 34.3 RDW 13.0 Plt Count 137 L Seg Neutrophils % 76.1 Lymphocytes % 15.5 Monocytes % 7.4 Eosinophils % 0.8 Basophils % 0.2 Absolute Neutrophils 6.1 Absolute Lymphocytes 1.2 Absolute Monocytes 0.6 Absolute Eosinophils 0.1 Absolute Basophils 0.0 Sodium 138.2 Potassium 4.4 Chloride 105 Carbon Dioxide 28 Anion Gap 5 BUN 21 H Creatinine 0.84 Est GFR ( Amer) > 60 Est GFR (Non-Af Amer) > 60 Glucose 80 Calcium 8.5 Phosphorus 2.7 Magnesium 1.7 Assessment & Plan - Diagnosis (1) S/P colostomy takedown Is this a current diagnosis for this admission?: YesPlan: 1. Patient is doing well postoperative day 2 status post colostomy takedown. 2. Plan will be to keep her on clear liquids, Hep-Lock IV fluids, DC IV Toradol and IV morphine. 3. We will consider advancing diet tomorrow. 4. She is on p.o. pain medication.
[2016-12-24] MEDS: KETOROLAC TROMETHAMINE INJ/PF 30 MG/1 ML SDV IV PRN (21:04)
[2016-12-24] MEDS: ATORVASTATIN CALCIUM 40 MG TABLET PO SCH (21:04)
[2016-12-25 05:39] LABS: ABSOLUTE EOSINOPHILS # (AUTO) 0.2 10^3/uL (0.0-0.6); ABSOLUTE LYMPHOCYTES (AUTO) 1.5 10^3/uL (0.5-4.7); ABSOLUTE MONOCYTES (AUTO) 0.6 10^3/uL (0.1-1.4); ABSOLUTE NEUT (AUTO) 4.2 10^3/uL (1.7-8.2); BASOPHILS % (AUTO) 0.5 % (0-2); EOSINOPHILS % (AUTO) 2.9 % (0-6); HEMATOCRIT 30.9 % (36.0-47.0); HEMOGLOBIN 10.5 g/dL (12.0-15.5); HGB HCT DIFFERENCE 0.6; LYMPHOCYTES % (AUTO) 23.3 % (13-45); MEAN CORPUSCULAR HEMOGLOBIN 32.8 pg (27.0-33.4); MEAN CORPUSCULAR HGB CONC 34.1 g/dL (32.0-36.0); MEAN CORPUSCULAR VOLUME 96 fl (80-97); MONOCYTES % (AUTO) 9.4 % (3-13); RED BLOOD COUNT 3.21 10^6/uL (3.72-5.28); RED CELL DISTRIBUTION WIDTH 13.1 % (11.5-14.0); SEGMENTED NEUTROPHILS % (AUTO) 63.9 % (42-78); WHITE BLOOD COUNT 6.5 10^3/uL (4.0-10.5)
[2016-12-25 05:52] LABS: ANION GAP 6 (5-19); BLOOD UREA NITROGEN 13 mg/dL (7-20); CALCIUM 8.7 mg/dL (8.4-10.2); CARBON DIOXIDE 31 mmol/L (22-30); CHLORIDE 105 mmol/L (98-107); CREATININE RESULT 0.77 mg/dL (0.52-1.25); GLUCOSE 82 mg/dL (75-110); POTASSIUM 4.4 mmol/L (3.6-5.0); SODIUM 141.6 mmol/L (137-145)
[2016-12-25] MEDS: CALCIUM CARBONATE 500 MG TABLET PO SCH ×2 (08:06→16:55)
--- NOTE | 2016-12-25 09:39 | PDOC PROGRESS REPORT ---
Subjective Progress Note for:: 12/25/16 Subjective:: Patient is postoperative day 3 status post colostomy takedown. She is tolerating clear liquids well, no nausea or vomiting. No abdominal pain, hiking in the halls, voiding. Physical Exam Vital Signs: Temp Pulse Resp BP Pulse Ox 97.9 F 63 16 118/90 H 93 12/25/16 08:00 12/25/16 08:00 12/25/16 08:00 12/25/16 08:00 12/25/16 08:00 Intake & Output 12/24/16 12/25/16 12/26/16 06:59 06:59 06:59 Intake Total 2590 1080 Output Total 1675 2510 Balance 915 -1430 Weight 69.6 kg General appearance: PRESENT: no acute distress GI/Abdominal exam: PRESENT: other - Patient examined supine position. Dressings removed; minimal drainage from inferior aspect of midline wound. The right lower quadrant pelvic drain is removed uneventfully. Results Laboratory Results: 12/25/16 04:46 12/25/16 04:46 12/25/16 12/25/16 04:46 04:46 WBC 6.5 RBC 3.21 L Hgb 10.5 L Hct 30.9 L MCV 96 MCH 32.8 MCHC 34.1 RDW 13.1 Plt Count 159 Seg Neutrophils % 63.9 Lymphocytes % 23.3 Monocytes % 9.4 Eosinophils % 2.9 Basophils % 0.5 Absolute Neutrophils 4.2 Absolute Lymphocytes 1.5 Absolute Monocytes 0.6 Absolute Eosinophils 0.2 Absolute Basophils 0.0 Sodium 141.6 Potassium 4.4 Chloride 105 Carbon Dioxide 31 H Anion Gap 6 BUN 13 Creatinine 0.77 Est GFR ( Amer) > 60 Est GFR (Non-Af Amer) > 60 Glucose 82 Calcium 8.7 Assessment & Plan - Diagnosis (1) S/P colostomy takedown Is this a current diagnosis for this admission?: YesPlan: 1. Patient now 3 days status post colostomy takedown doing well, tolerating a diet, no apparent postoperative complications 2. Patient now back on home medications including beta-fred 3. Plan of the day: Advance to full liquids, shower, anticipate discharge home next 12-24 hours.
[2016-12-25] MEDS: FAMOTIDINE INJ/PF 20 MG/2 ML SDV IV SCH ×2 (09:46→21:18)
[2016-12-25] MEDS: ASCORBIC ACID 500 MG TABLET PO SCH (09:48)
[2016-12-25] MEDS: CLOPIDOGREL BISULFATE 75 MG TABLET PO SCH (09:48)
[2016-12-25] MEDS: ASPIRIN 81 MG TABLET, ENT COATED PO SCH (09:48)
[2016-12-25] MEDS: METOPROLOL SUCCINATE 50 MG TAB.SR.24H PO SCH (09:49)
--- NOTE | 2016-12-25 10:46 | Progress Note ---
Provider Note Provider Note: Patient is doing well postoperatively. Her PVCs have been stable. We will sign off for now. Please call the hospitalist service if you have any further questions.
[2016-12-25] MEDS: KETOROLAC TROMETHAMINE INJ/PF 30 MG/1 ML SDV IV PRN (21:17)
[2016-12-25] MEDS: ATORVASTATIN CALCIUM 40 MG TABLET PO SCH (21:18)
[2016-12-26] MEDS: CALCIUM CARBONATE 500 MG TABLET PO SCH (08:43)
[2016-12-26] MEDS: FAMOTIDINE INJ/PF 20 MG/2 ML SDV IV SCH (10:08)
[2016-12-26] MEDS: METOPROLOL SUCCINATE 50 MG TAB.SR.24H PO SCH (10:09)
[2016-12-26] MEDS: ASPIRIN 81 MG TABLET, ENT COATED PO SCH (10:09)
[2016-12-26] MEDS: CLOPIDOGREL BISULFATE 75 MG TABLET PO SCH (10:09)
[2016-12-26] MEDS: ASCORBIC ACID 500 MG TABLET PO SCH (10:09)
[2016-12-26 11:53] VITALS: BP 118/90
--- NOTE | 2016-12-26 19:48 | DISCHARGE SUMMARY E ---
Discharge Summary NAME: BITA THOMPSON : 1945 AGE: 71Y ADMITTED: 12/22/2016 DISCHARGED: 12/26/2016 REASON FOR ADMISSION: Colostomy takedown. SUMMARY OF HOSPITALIZATION: The patient is a 71-year-old white female who underwent sigmoid colectomy and colostomy and July procedure approximately 6 months ago for complicated diverticulitis, [place] Classification IV. She was brought through Ambulatory Surgery for colostomy takedown. The patient underwent operative open colostomy takedown by Dr. Abimael Lucero on 12/22/2016. She tolerated the operation well. Immediately postoperatively in the recovery room, she had some atypical chest pain, but this was evaluated by the Primary Care service and felt not to represent an acute myocardial event. Her postoperative course was uneventful. Nasogastric tube was removed on postoperative day #1 and june-anastomotic drain removed on postoperative day #3. She was started on a diet; this was advanced and tolerated well. Her incision healed satisfactorily with livan remaining in place. She had bowel function consisting of flatus and stool. On the fourth postoperative day, she was felt to be ready for discharge home. FINAL DIAGNOSES: 1. Colostomy takedown, open, with primary colorectal anastomosis by Dr. Lucero. 2. History of hypertension, controlled. 3. History of coronary artery disease. RECOMMENDATIONS: 1. Patient will be discharged home in the care of her family, stay on full liquids and take Colace b.i.d.; prescription for Percocet provided to be taken once every 6 hours p.r.n. pain. 2. Patient may shower. 3. Patient will call office in 48 hours to arrange for a follow-up appointment with Dr. Lucero in approximately 1 week. DICTATING PHYSICIAN: ABIMAEL LUCERO M.D. [id number] PHY#: [id number] ID: [id number] JOB#: [id number] ACCT: [id number] cc:ABIMAEL LUCERO M.D. >
== END 2016-12-26 12:15 | disposition home or self-care (01) | DRG 331 ==
LOC: INOR 05:20 → 4N 14:18
PROVIDERS: ADMIT Surgery; ATTEND Surgery
PROC: 0DQM0ZZ Repair Descending Colon, Open Approach (ICD-10-PCS; 2016-12-22)
PROC: 0DSN0ZZ Reposition Sigmoid Colon, Open Approach (ICD-10-PCS; 2016-12-22)
PROC: 0DN80ZZ Release Small Intestine, Open Approach (ICD-10-PCS; 2016-12-22)
PROC: 0DNS0ZZ (ICD-10-PCS; 2016-12-22)
PROC: 0UN90ZZ Release Uterus, Open Approach (ICD-10-PCS; 2016-12-22)
PROC: 0DNP0ZZ Release Rectum, Open Approach (ICD-10-PCS; 2016-12-22)
PROC: 0W9G00Z Drainage of Peritoneal Cavity with Drainage Device, Open Approach (ICD-10-PCS; 2016-12-22)
PROC: 0DJD8ZZ Inspection of Lower Intestinal Tract, Via Natural or Artificial Opening Endoscopic (ICD-10-PCS; 2016-12-22)
PROC: 0D1M0ZP Bypass Descending Colon to Rectum, Open Approach (ICD-10-PCS; principal; 2016-12-22 07:30)
DX: Z43.3 Encounter for attention to colostomy (principal); K66.0 Peritoneal adhesions (postprocedural) (postinfection); N73.6 Female pelvic peritoneal adhesions (postinfective); D25.9 Leiomyoma of uterus, unspecified; I10 Essential (primary) hypertension; R00.0 Tachycardia, unspecified; I25.10 Atherosclerotic heart disease of native coronary artery without angina pectoris; F32.9 Major depressive disorder, single episode, unspecified; J44.9 Chronic obstructive pulmonary disease, unspecified; E78.5 Hyperlipidemia, unspecified; Z87.891 Personal history of nicotine dependence; I25.2 Old myocardial infarction; Z90.49 Acquired absence of other specified parts of digestive tract; Z95.5 Presence of coronary angioplasty implant and graft; Z88.6 Allergy status to analgesic agent; Z82.49 Family history of ischemic heart disease and other diseases of the circulatory system; Z80.1 Family history of malignant neoplasm of trachea, bronchus and lung; Z86.010 Personal history of colon polyps; Z79.02 Long term (current) use of antithrombotics/antiplatelets; Z79.899 Other long term (current) drug therapy
CPT/HCPCS: 36415; 790; 80048; 80051; 83735; 84100; 84132; 85025; 85027; 85610; 85730; 93005; 93010; 94799; C9290; J0131; J0295; J0330; J1100; J1170; J1610; J1885; J2250; J2310; J2405; J2704; J3010; J3490; J7050; S0028